=== PATIENT | male | born 1970 | race Caucasian/White ===

== ENCOUNTER 2018-01-29 19:02 | Emergency (ER) | payer MEDICAID ==
[~2018-01-29] VITALS: Ht 172.7 cm; Wt 87.0 kg
[~2018-01-29 19:02] MED LIST: ALBU8HFA IH; AZIT250T9 PO; BENZ-51 PO; CHLO25CA5 PO; ENOX40DI9 SQ; GABA-531 PO; IBUP-2070 PO; WARF7.5 PO; ZIPR20CA2 PO
[2018-01-29] MEDS ORDERED: ZIPR40CA2 PO (20:12)
[2018-01-29] MEDS ORDERED: CLON2 PO (20:12)
[2018-01-29] MEDS ORDERED: DIPH25 PO (20:12)
[2018-01-29] MEDS ORDERED: ChlordiazePOXIDE HCL 25 MG CAPSULE PO ONE (22:15)
[2018-01-29 22:38] VITALS: BP 128/76
== END 2018-01-29 23:00 | disposition home or self-care (01) ==
LOC: EMS 19:04
DX: F10.239 Alcohol dependence with withdrawal, unspecified (principal); J45.909 Unspecified asthma, uncomplicated; I25.10 Atherosclerotic heart disease of native coronary artery without angina pectoris; E78.00 Pure hypercholesterolemia, unspecified; F17.210 Nicotine dependence, cigarettes, uncomplicated; Z86.718 Personal history of other venous thrombosis and embolism; Z88.5 Allergy status to narcotic agent; Z91.018 Allergy to other foods; Z79.899 Other long term (current) drug therapy; Y90.2 Blood alcohol level of 40-59 mg/100 ml

== ENCOUNTER 2018-10-01 11:03 | Emergency (ER) | payer MEDICAID ==
[~2018-10-01] VITALS: Ht 172.7 cm; Wt 40.9 kg
[~2018-10-01 11:03] MED LIST changes: -AZIT250T9 PO; -BENZ-51 PO; -CHLO25CA5 PO; +CLON2 PO; +DIPH25 PO; -ENOX40DI9 SQ; -IBUP-2070 PO; -WARF7.5 PO; +ZIPR40CA2 PO
[2018-10-01] MEDS ORDERED: TRI405I TP (11:23)
[2018-10-01 13:32] LABS: INR 1.9 (0.9-1.1); PROTHROMBIN TIME 19.5 SEC (9.4-11.6)
[2018-10-01 14:35] VITALS: BP 126/83
== END 2018-10-01 15:05 | disposition home or self-care (01) ==
LOC: EMS 11:08
DX: G40.909 Epilepsy, unspecified, not intractable, without status epilepticus (principal); F19.10 Other psychoactive substance abuse, uncomplicated; F41.9 Anxiety disorder, unspecified; E78.00 Pure hypercholesterolemia, unspecified; I25.10 Atherosclerotic heart disease of native coronary artery without angina pectoris; J45.909 Unspecified asthma, uncomplicated; F10.20 Alcohol dependence, uncomplicated; F17.210 Nicotine dependence, cigarettes, uncomplicated; Z86.718 Personal history of other venous thrombosis and embolism; Z79.899 Other long term (current) drug therapy; Z88.5 Allergy status to narcotic agent; Z91.018 Allergy to other foods; Z79.01 Long term (current) use of anticoagulants; Z76.0 Encounter for issue of repeat prescription

== ENCOUNTER 2018-10-11 21:41 | Emergency (ER) | payer SELFPAY ==
[~2018-10-11] VITALS: Ht 172.7 cm; Wt 89.5 kg
[~2018-10-11 21:41] MED LIST changes: -CLON2 PO; -DIPH25 PO; +TRIA40VI TP; -ZIPR20CA2 PO; -ZIPR40CA2 PO
[2018-10-11] MEDS ORDERED: ZIPR20CA2 PO (21:55)
[2018-10-11] MEDS ORDERED: WARF3TAB29 PO (21:55)
[2018-10-11] MEDS ORDERED: ZIPR40CA2 PO (21:55)
[2018-10-11 23:42] VITALS: BP 126/80
[2018-10-12 00:04] LABS: INR 1.1 (0.9-1.1); PROTHROMBIN TIME 11.6 SEC (9.4-11.6)
[2018-10-12] MEDS ORDERED: LORazepam 1 MG TABLET PO ONE (02:15)
[2018-10-12] MEDS ORDERED: WARFARIN SODIUM 5 MG TABLET PO ONE (02:15)
== END 2018-10-12 03:44 | disposition home or self-care (01) ==
LOC: EMS 21:46
DX: R79.1 Abnormal coagulation profile (principal); R20.2 Paresthesia of skin; J45.909 Unspecified asthma, uncomplicated; I25.10 Atherosclerotic heart disease of native coronary artery without angina pectoris; E78.00 Pure hypercholesterolemia, unspecified; F17.210 Nicotine dependence, cigarettes, uncomplicated; Z76.0 Encounter for issue of repeat prescription; Z88.5 Allergy status to narcotic agent; Z91.018 Allergy to other foods

== ENCOUNTER 2018-11-17 17:38 | Emergency (ER) | payer MEDICAID ==
[~2018-11-17] VITALS: Ht 172.7 cm; Wt 88.2 kg
[~2018-11-17 17:38] MED LIST changes: -TRIA40VI TP; +WARF3TAB29 PO; +ZIPR20CA2 PO; +ZIPR40CA2 PO
[2018-11-17] MEDS ORDERED: ChlordiazePOXIDE HCL 25 MG CAPSULE PO ONE (20:15)
[2018-11-17 21:07] VITALS: BP 132/67
== END 2018-11-17 21:20 | disposition home or self-care (01) ==
LOC: EMS 17:39
DX: F19.10 Other psychoactive substance abuse, uncomplicated (principal); F10.20 Alcohol dependence, uncomplicated; E78.00 Pure hypercholesterolemia, unspecified; I25.10 Atherosclerotic heart disease of native coronary artery without angina pectoris; L40.9 Psoriasis, unspecified; J45.909 Unspecified asthma, uncomplicated; F17.210 Nicotine dependence, cigarettes, uncomplicated; Z86.718 Personal history of other venous thrombosis and embolism; Z79.899 Other long term (current) drug therapy; Z91.018 Allergy to other foods; Z88.5 Allergy status to narcotic agent

== ENCOUNTER 2018-12-03 13:36 | Emergency (ER) | payer MEDICAID ==
[~2018-12-03] VITALS: Ht 172.7 cm; Wt 88.2 kg
[2018-12-03] MEDS ORDERED: RIVA10 PO (13:44)
[2018-12-03 14:45] LABS: BASOPHILS % (AUTO) 0.4 % (0.0-2.0); EOSINOPHILS % (AUTO) 1.2 % (1.0-6.0); HEMATOCRIT 48.2 % (41-53); LYMPHOCYTES # (AUTO) 1.4 K/uL (1.0-4.8); LYMPHOCYTES % (AUTO) 15.2 % (22.0-44.0); MEAN CORPUSCULAR HEMOGLOBIN 30.9 pg (26.0-34.0); MEAN CORPUSCULAR HGB CONC 33.3 G/dL (31.0-37.0); MEAN CORPUSCULAR VOLUME 93 fL (80-100); MONOCYTES # (AUTO) 0.4 K/uL (0.1-1.0); MONOCYTES % (AUTO) 4.8 % (2.0-9.0); NEUTROPHILS # (AUTO) 7.4 K/uL (1.8-7.7); NEUTROPHILS % (AUTO) 78.4 % (40.0-70.0); PLATELET COUNT (AUTO) 296 K/uL (150-450); RED BLOOD CELL COUNT(AUTO) 5.19 MIL/uL (4.50-5.90); RED CELL DISTRIBUTION WIDTH 13.6 % (11.5-14.5)
[2018-12-03 14:59] LABS: ANION GAP 10 mmol/L (8-16); CALCIUM, TOTAL 9.3 mg/dL (8.8-10.5); CARBON DIOXIDE 28 mmol/L (22-29); CHLORIDE 102 mmol/L (98-107); CREATININE 0.81 mg/dL (0.60-1.30); GLOMERULAR FILTR. RATE CALC > 60 mL/min (>60); GLUCOSE,RANDOM 101 mg/dL (70-110); SODIUM SERUM 140 mmol/L (136-145); UREA NITROGEN, BLOOD 13 mg/dL (7-18)
[2018-12-03 15:01] LABS: INR 0.9 (0.9-1.1); PROTHROMBIN TIME 9.8 SEC (9.4-11.6)
[2018-12-03 15:07] LABS: ALANINE AMINOTRANSFERASE 27 U/L (12-78); ALBUMIN 4.4 g/dL (3.4-5.0); ALKALINE PHOSPHATASE 57 U/L (46-116); ASPARTATE AMINOTRANSFERASE 17 U/L (15-37); BILIRUBIN,TOTAL 0.3 mg/dL (0.1-1.0); TOTAL PROTEIN, SERUM 8.3 g/dL (6.4-8.2)
[2018-12-03 15:18] VITALS: BP 153/97
== END 2018-12-03 16:02 | disposition home or self-care (01) ==
LOC: EMS 13:39
DX: F41.9 Anxiety disorder, unspecified (principal); I82.592 Chronic embolism and thrombosis of other specified deep vein of left lower extremity; F10.20 Alcohol dependence, uncomplicated; E78.00 Pure hypercholesterolemia, unspecified; I25.10 Atherosclerotic heart disease of native coronary artery without angina pectoris; J45.909 Unspecified asthma, uncomplicated; F17.210 Nicotine dependence, cigarettes, uncomplicated; Z79.899 Other long term (current) drug therapy; Z91.018 Allergy to other foods; Z88.5 Allergy status to narcotic agent
CPT/HCPCS: 36415; 80053; 85025; 85610; 85730; 99283; 99406; G0480

== ENCOUNTER 2018-12-06 19:10 | Emergency (ER) | payer MEDICAID ==
[~2018-12-06] VITALS: Ht 172.7 cm; Wt 90.9 kg
[~2018-12-06 19:10] MED LIST changes: +RIVA10 PO; -WARF3TAB29 PO
[2018-12-06] MEDS ORDERED: HYDROCODONE/ACETAMINOPHEN 5-325 MG TABLET PO ONE (21:00)
[2018-12-06 21:35] VITALS: BP 124/76
== END 2018-12-06 21:51 | disposition home or self-care (01) ==
LOC: EMS 19:12
DX: L08.9 Local infection of the skin and subcutaneous tissue, unspecified (principal); R03.0 Elevated blood-pressure reading, without diagnosis of hypertension; J45.909 Unspecified asthma, uncomplicated; I25.10 Atherosclerotic heart disease of native coronary artery without angina pectoris; E78.00 Pure hypercholesterolemia, unspecified; F17.210 Nicotine dependence, cigarettes, uncomplicated; Z88.5 Allergy status to narcotic agent; Z91.018 Allergy to other foods

== ENCOUNTER 2018-12-18 11:56 | Emergency (ER) | payer MEDICAID ==
[~2018-12-18] VITALS: Ht 172.7 cm; Wt 93.6 kg
[2018-12-18] MEDS ORDERED: DIPH25 PO (12:11)
[2018-12-18] MEDS ORDERED: HYD25 PO (12:11)
[2018-12-18 13:54] VITALS: BP 122/70
== END 2018-12-18 13:56 | disposition home or self-care (01) ==
LOC: EMS 11:58
DX: Z76.0 Encounter for issue of repeat prescription (principal); J45.909 Unspecified asthma, uncomplicated; I25.10 Atherosclerotic heart disease of native coronary artery without angina pectoris; E78.00 Pure hypercholesterolemia, unspecified; F17.210 Nicotine dependence, cigarettes, uncomplicated; Z86.718 Personal history of other venous thrombosis and embolism